=== PATIENT | male | born 1980 | race Caucasian/White ===

== ENCOUNTER 2021-02-21 16:22 | Day surgery (SDC) | payer BC ==
[2021-02-21] MEDS ORDERED: BUPIVACAINE 0.5% VIAL IJ ONE (16:23)
[2021-02-21] MEDS ORDERED: Depo-Medrol 40 MG/ML IM ONE (16:23)
[2021-02-21] MEDS ORDERED: Xylocaine 1% Vial 30 ML PF IJ ONE (16:23)
--- NOTE | 2021-02-21 21:23 | XRAY ---
Indication: Right knee injection. Intraoperative fluoroscopy provided for 10 seconds. Single digital spot image submitted for interpretation demonstrates needle tip projecting over the right femur intercondylar notch. Small amount of contrast injected for needle tip placement. Correlate with intraoperative findings/report.
--- NOTE | 2021-02-22 09:00 | XRAY ---
10 seconds fluoroscopy time in surgery for intra-articular injection of the right hip.
== END 2021-02-21 19:33 | disposition home or self-care (01) ==
LOC: SDC-PAIN 16:22
PROVIDERS: ATTEND Psychiatry & Neurology Pain Medicine
DX: M17.11 Unilateral primary osteoarthritis, right knee (principal); Z79.899 Other long term (current) drug therapy
CPT/HCPCS: 20610; 73560; 77002; J1030; J2001; Q9966

== ENCOUNTER 2021-09-19 08:08 | Day surgery (SDC) | payer BC ==
[2021-09-19] MEDS ORDERED: Xylocaine 1% Vial 30 ML PF IJ ONE (08:09)
[2021-09-19] MEDS ORDERED: Depo-Medrol 40 MG/ML IM ONE (08:09)
[2021-09-19] MEDS ORDERED: BUPIVACAINE 0.5% VIAL IJ ONE (08:09)
--- NOTE | 2021-09-19 10:40 | XRAY ---
Indication: Right knee injection. Intraoperative fluoroscopy provided for 15 seconds. Single digital spot image submitted for interpretation demonstrates needle tip projecting over the right femur intercondylar notch. Small amount of contrast injected for needle tip placement. Correlate with intraoperative findings/report.
--- NOTE | 2021-09-19 12:48 | XRAY ---
15 seconds fluoroscopy time in surgery for intra-articular injection of the right knee.
== END 2021-09-19 09:45 | disposition home or self-care (01) ==
LOC: SDC-PAIN 08:08
PROVIDERS: ATTEND Psychiatry & Neurology Pain Medicine
DX: M17.11 Unilateral primary osteoarthritis, right knee (principal); Z79.899 Other long term (current) drug therapy
CPT/HCPCS: 20610; 73560; 77002; J1030; J2001; Q9966

== ENCOUNTER 2022-12-11 09:55 | Day surgery (SDC) | payer BC ==
[2022-12-11] MEDS ORDERED: Depo-Medrol 40 MG/ML IM ONE (09:56)
[2022-12-11] MEDS ORDERED: BUPIVACAINE 0.5% VIAL IJ ONE (09:56)
[2022-12-11] MEDS ORDERED: DIPRIVAN 200 MG/20 ML IV ONE ×2 (12:17→12:27)
--- NOTE | 2022-12-11 13:44 | XRAY ---
Indication: Left SI joint and left greater trochanter bursa injection. Intraoperative fluoroscopy provided for 24 seconds. 3 digital spot images submitted for interpretation demonstrates posterior needle tip projecting over the left SI joint. Second needle tip lateral to left femur greater trochanter with small amount of contrast injected for needle tip placement. Correlate with intraoperative findings/report.
[2022-12-11] MEDS ORDERED: Lactated Ringers 1,000 ML IV ONE (16:46)
--- NOTE | 2022-12-11 20:12 | XRAY ---
24 seconds of fluoroscopy was used in surgery for a left sacroiliac joint and left greater trochanteric bursa injection.
== END 2022-12-11 12:50 | disposition home or self-care (01) ==
LOC: SDC-PAIN 09:55
PROVIDERS: ATTEND Psychiatry & Neurology Pain Medicine
DX: M46.1 Sacroiliitis, not elsewhere classified (principal); M16.12 Unilateral primary osteoarthritis, left hip; Z79.899 Other long term (current) drug therapy
CPT/HCPCS: 20610; 27096; 73501; 77002; J1030; J2704; Q9966; G0260